=== PATIENT | female | born 1990 | race Caucasian/White ===

== ENCOUNTER 2017-04-28 13:23 | Emergency (ER) | payer BC ==
[2017-04-28] MEDS ORDERED: Ketorolac 60 MG/2 ML SDV IM ONE (14:10)
[2017-04-28] MEDS ORDERED: Metoclopramide 10 MG Tab PO ONE (14:10)
[2017-04-28] MEDS ORDERED: predniSONE 20 MG Tab PO ONE (14:10)
[2017-04-28] MEDS ORDERED: diphenhydrAMINE 25 MG Cap PO ONE (14:10)
--- NOTE | 2017-04-28 14:24 | EDM.PDOC ---
ED HPI GENERAL MEDICAL PROBLEM - General Chief Complaint: Headache Stated Complaint: MIGRAINE Time Seen by Provider: 04/28/17 14:09 Source of Information: Reports: Patient History Limitations: Reports: No Limitations - History of Present Illness INITIAL COMMENTS - FREE TEXT/NARRATIVE: Patient is a 26-year-old female who presents to emergency department today with her typical migraine headache that has lasted a few hours. She does not take headache medicine on a regular basis. Does however take medicine for depression. She admits to being seen on Tuesday at a hospital in [place] for same symptoms and received IV therapy for relief. Patient denies any trauma, fever, nausea, vomiting, diarrhea, possibility of , or vision changes. Chronic migraine symptoms for several years. Onset: Today Duration: Hour(s): Location: Reports: Head Quality: Reports: Ache, Pressure Severity: Mild Improves with: Reports: None Worsens with: Reports: None Associated Symptoms: Reports: No Other Symptoms, Headaches. Denies: Fever/ Chills, Nausea/Vomiting, Syncope Frontal Headache Pain Score (Numeric/FACES): 5 - Related Data Allergies Allergy/AdvReac Type Severity Reaction Status Date / Time amoxicillin Allergy Cannot Verified 04/28/17 13:43 Remember Sulfa (Sulfonamide Allergy Cannot Verified 04/28/17 13:43 Antibiotics) Remember Home Meds: Home Meds PARoxetine [Paxil] 20 mg PO DAILY 04/28/17 [History] SUMAtriptan Succinate [Imitrex] 25 mg PO Q2HR #20 tablet 04/28/17 [Rx] medroxyPROGESTERone Acetate [Depo-Provera] 150 mg IM ASDIRECTED 04/28/17 [ History] Past Medical History Neurological History: Reports: Headaches, Chronic, Migraines Psychiatric History: Reports: ADHD, Anxiety, Depression Endocrine/Metabolic History: Reports: Obesity/BMI 30+ Hematologic History: Reports: Anesthesia Reaction - Infectious Disease History Infectious Disease History: Reports: Chicken Pox - Past Surgical History Endocrine Surgical History: Reports: None Neurological Surgical History: Reports: None Dermatological Surgical History: Reports: None Social & Family History - Family History Family Medical History: Noncontributory - Tobacco Use Smoking Status *Q: Former Smoker Used Tobacco, but Quit: Yes Month Tobacco Last Used: 2014 - Caffeine Use Caffeine Use: Reports: Coffee, Soda, Tea - Recreational Drug Use Recreational Drug Use: No ED ROS GENERAL - Review of Systems Review Of Systems: ROS reveals no pertinent complaints other than HPI. Constitutional: Reports: No Symptoms HEENT: Reports: No Symptoms Respiratory: Reports: No Symptoms Cardiovascular: Reports: No Symptoms Endocrine: Reports: No Symptoms GI/Abdominal: Reports: No Symptoms : Reports: No Symptoms Musculoskeletal: Reports: No Symptoms Skin: Reports: No Symptoms Neurological: Reports: Headache Psychiatric: Reports: No Symptoms Hematologic/Lymphatic: Reports: No Symptoms Immunologic: Reports: No Symptoms - Physical Exam Exam: See Below Exam Limited By: No Limitations General Appearance: Alert, WD/WN, No Apparent Distress Eye Exam: Bilateral Eye: Normal Inspection Ears: Normal External Exam, Normal Canal, Normal TMs Nose: Normal Inspection, Normal Mucosa, No Blood Throat/Mouth: Normal Inspection, Normal Oropharynx, No Airway Compromise Head Exam: Atraumatic, Normocephalic Neck: Normal Inspection, Supple, Non-Tender, Full Range of Motion Respiratory/Chest: No Respiratory Distress, Lungs Clear, Normal Breath Sounds, No Accessory Muscle Use, Chest Non-Tender Cardiovascular: Regular Rate, Rhythm, No Murmur GI/Abdominal: Normal Bowel Sounds, Soft, Non-Tender Neuro Exam (Abbreviated): Alert, Oriented, CN II-XII Intact, Normal Cognition, No Motor/Sensory Deficits Extremities: Normal Inspection Psychiatric: Normal Affect, Normal Mood Skin Exam: Warm, Dry, Intact, Normal Color, No Rash Course - Vital Signs Last Recorded V/S: Last Vital Signs Temp 99.5 F 04/28/17 13:40 Pulse 73 04/28/17 13:40 Resp 16 04/28/17 13:40 BP 114/71 04/28/17 13:40 Pulse Ox 95 04/28/17 13:40 - Orders/Labs/Meds Meds: Medications Discontinued Medications Generic Name Dose Route Start Last Admin Trade Name Freq PRN Reason Stop Dose Admin Diphenhydramine HCl 50 mg 04/28/17 14:10 Benadryl PO 04/28/17 14:11 ONETIME ONE Ketorolac Tromethamine 60 mg 04/28/17 14:10 Toradol IM 04/28/17 14:11 ONETIME ONE Metoclopramide HCl 10 mg 04/28/17 14:10 Reglan PO 04/28/17 14:11 ONETIME ONE Prednisone 40 mg 04/28/17 14:10 Prednisone PO 04/28/17 14:11 ONETIME ONE - Re-Assessments/Exams Free Text/Narrative Re-Assessment/Exam: 04/28/17 14:26 PATIENT AFEBRILE, NONTOXIC APPEARING. VITAL SIGNS STABLE. HEADACHE SUBSIDED. BOYFRIEND IN EMERGENCY DEPARTMENT AND WILL TRANSPORT PATIENT. Departure - Departure Time of Disposition: 14:43 Disposition: Home, Self-Care 01 Condition: Good Clinical Impression: Migraine - Discharge Information Instructions: Recurrent Migraine Headache, [id number] Referrals: PCP,Unknown [Primary Care Provider] - Additional Instructions: FOLLOW-UP WITH YOUR PRIMARY CARE DOCTOR IN THE NEXT 2-3 DAYS. PRESENTED TO A LOCAL ER IF SYMPTOMS CONTINUE OR WORSEN.
== END 2017-04-28 14:50 | disposition home or self-care (01) ==
LOC: KA.ED 13:23
DX: G43.909 Migraine, unspecified, not intractable, without status migrainosus (principal); F32.9 Major depressive disorder, single episode, unspecified; Z87.891 Personal history of nicotine dependence; Z79.899 Other long term (current) drug therapy; Z88.1 Allergy status to other antibiotic agents; Z88.2 Allergy status to sulfonamides
CPT/HCPCS: 96372; 99283; A9270; J1885